=== PATIENT | male | born 1985 | race African-American/Black ===

== ENCOUNTER 2016-08-18 10:44 | Emergency (ER) | payer OTHER ==
[~2016-08-18] VITALS: Ht 193 cm; Wt 147.7 kg
[~2016-08-18 10:44] MED LIST: NO HOME MEDICATIONS; PHENERGAN W/CO120 M1 PO; PREDNISONE20 MG PO; SYSTANE 0.3-0.1 EACH OP; SYSTANE0.3% OP; VALTREX 50500 MG/TAB PO
[2016-08-18 11:05] VITALS: BP 142/99; TEMP 99.6
[2016-08-18 13:34] LABS: CHLAMYDIA/TRACH by PCR Male Not Detected; Neisseria Gon by PCR Male Not Detected
[2016-08-18] MEDS ORDERED: VALTREX1 GM PO (14:10)
[2016-08-18] MEDS ORDERED: ULTRAM 50MG TAB50 MG PO (14:10)
[2016-08-18 14:16] VITALS: PULSE 91
== END 2016-08-18 14:16 | disposition home or self-care (01) ==
LOC: COL.ER 10:44
PROVIDERS: Physician Assistant
DX: N48.89 Other specified disorders of penis (principal); R36.9 Urethral discharge, unspecified

== ENCOUNTER 2016-12-22 08:37 | Emergency (ER) | payer OTHER ==
[~2016-12-22] VITALS: Ht 193 cm; Wt 131.8 kg
[~2016-12-22 08:37] MED LIST changes: +ULTRAM 50MG TAB50 MG PO; +VALTREX1 GM PO
[2016-12-22 08:39] VITALS: TEMP 97.8
[2016-12-22] MEDS ORDERED: CEPHALEXIN500 M1 PO (09:00)
[2016-12-22 09:07] VITALS: BP 121/75; PULSE 81
== END 2016-12-22 09:08 | disposition home or self-care (01) ==
LOC: COL.ER 08:37
DX: S30.812A Abrasion of penis, initial encounter (principal); X58.XXXA Exposure to other specified factors, initial encounter; Z98.890 Other specified postprocedural states; G89.18 Other acute postprocedural pain

== ENCOUNTER 2017-08-27 13:29 | Emergency (ER) | payer OTHER ==
[~2017-08-27] VITALS: Ht 193 cm; Wt 125.0 kg
[~2017-08-27 13:29] MED LIST changes: +CEPHALEXIN500 M1 PO
[2017-08-27 15:35] VITALS: BP 125/92; PULSE 79; TEMP 98.1
== END 2017-08-27 15:35 | disposition home or self-care (01) ==
LOC: COL.ER 13:29
DX: S09.90XA Unspecified injury of head, initial encounter (principal); V43.52XA Car driver injured in collision with other type car in traffic accident, initial encounter

== ENCOUNTER 2020-08-09 22:00 | Emergency (ER) | payer OTHER ==
[~2020-08-09] VITALS: Ht 182.9 cm; Wt 138.6 kg
[2020-08-09 22:19] VITALS: BP 122/85; TEMP 97.7
[2020-08-09 23:35] LABS: BASO # 0.1 (0.0-0.2); BASO % 1.1 % (0.0-2.0); EOS # 0.1 (0.0-0.7); EOS % 1.2 % (0-4.0); GRAN # 3.8 (1.4-6.5); HEMATOCRIT 43.3 % (42.0-52.0); HEMOGLOBIN 14.1 g/dl (13.5-18.0); LYMPH # 2.8 (1.2-3.4); LYMPH % 37.4 % (20.0-51.0); MEAN CELL VOLUME 89 fl (80.0-100.0); MEAN CORPUSCULAR HEMOGLOBIN 29 pg (27.0-31.0); MEAN CORPUSCULAR HGB CONC 33 g/dl (33.0-37.0); MEAN PLATELET VOLUME 11.2 fl (7.4-10.4); MONO # 0.7 (0.1-0.6); PLATELET COUNT 283 K/mm3 (130-400); RED BLOOD COUNT 4.85 M/mm3 (4.20-5.60); REDCELL DISTRIBUTION WIDTH-CV 13.5 % (11.5-14.5)
[2020-08-09 23:47] LABS: CALCIUM 9.1 mg/dL (8.4-10.2); CREATININE, serum 1.07 (0.66-1.25); POTASSIUM 4.3 mmol/L (3.4-5.0)
[2020-08-10] MEDS ORDERED: KEPPRA 500MG500 MG PO (00:21)
[2020-08-10 01:08] VITALS: PULSE 95
== END 2020-08-10 01:08 | disposition home or self-care (01) ==
LOC: COL.ER 22:00
PROVIDERS: Emergency Medicine
DX: G40.89 Other seizures (principal)
CPT/HCPCS: J1953